=== PATIENT | male | born 1955 | race Caucasian/White ===

== ENCOUNTER 2020-02-26 13:13 | Emergency (ER) | payer MEDICARE ==
[~2020-02-26] VITALS: Ht 185.4 cm; Wt 97.7 kg
[~2020-02-26 13:13] MED LIST: ACET-2144 PO; AMLO2.5T2 PO; ASPI-845 PO; CYCL-1 PO; HYDR-4383 PO; HYDR25TA4 PO; IBUP-1984 PO; LISI40TA4 PO
[2020-02-26] MEDS ORDERED: normal saline 1000ML IV soln IVB ONE (13:25)
[2020-02-26] MEDS ORDERED: iohexol 300mg/ml 100ml inj. ONE (13:33)
[2020-02-26] MEDS ORDERED: ondansetron/PF 4mg/2ml inj IV ONE (14:05)
[2020-02-26] MEDS ORDERED: morphine 4 MG/ML inj SYRINge IV ONE (14:05)
--- NOTE | 2020-02-26 14:39 | NUR ---
Grant ruvalcaba in ED - 02/26/20 at 1440 by HUE Patient resting comfortably and denies pain at this time. He is updated on POC.
--- NOTE | 2020-02-26 14:40 | NUR ---
Patient resting comfortably and denies pain at this time. He is updated on POC.
[2020-02-26 14:53] VITALS: BP 153/98
== END 2020-02-26 15:40 | disposition home or self-care (01) ==
LOC: ER 13:15
DX: S43.102A Unspecified dislocation of left acromioclavicular joint, initial encounter (principal); M25.512 Pain in left shoulder; R11.2 Nausea with vomiting, unspecified; W11.XXXA Fall on and from ladder, initial encounter; W22.09XA Striking against other stationary object, initial encounter; Y93.89 Activity, other specified; Y92.89 Other specified places as the place of occurrence of the external cause; Y99.8 Other external cause status; I77.819 Aortic ectasia, unspecified site; R07.81 Pleurodynia; K21.9 Gastro-esophageal reflux disease without esophagitis; G89.29 Other chronic pain; Z88.0 Allergy status to penicillin; Z79.82 Long term (current) use of aspirin; Z79.899 Other long term (current) drug therapy; M54.9 Dorsalgia, unspecified
CPT/HCPCS: 71260; 73030; 74177; 96361; 96374; 96375; 99285; J2270; J2405; J7030; Q9967; 70450; 72125